=== PATIENT | female | born 1960 | race Caucasian/White ===

== ENCOUNTER 2017-06-24 12:04 | Emergency (ER) | payer OTHER ==
[2017-06-24 12:11] VITALS: BP 138/77; PULSE 73; TEMP 98.4; BMI 32.2
[2017-06-24] MEDS ORDERED: guaiFENesin 200 MG/10 ML 10 ML UNIT-DOSE CUPS PO ONE (13:48)
[2017-06-24] MEDS ORDERED: predniSONE 20 MG TABLET (UD) PO ONE (13:48)
[2017-06-24] MEDS ORDERED: ALBUTEROL SO4 2.5/IPRATROPIUM 0.5 INH SOL 3 ML VIAL.NEB. NEB ONE ×2 (13:48→13:51)
--- NOTE | 2017-06-24 13:48 | PDOC ---
History of Present Illness - General Chief Complaint: Respiratory Stated Complaint: HEADACHES, JOINT PAIN Time Seen by Provider: 06/24/17 13:31 Past History - Past Medical History Allergies/Adverse Reactions: Allergies Allergy/AdvReac Type Severity Reaction Status Date / Time No Known Allergies Allergy Verified 06/24/17 12:11 Home Medications: Ambulatory Orders No Home Medications 0 dose .ROUTE UTDICT 10/26/13 Albuterol Sulfate Inhaler - [Ventolin HFA Inhaler -] 1 - 2 inh PO Q4H #1 inhaler 06/24/17 Guaifenesin [Robitussin] 10 ml PO Q6H #200 ml 06/24/17 Ibuprofen 800 mg PO TID #30 tablet 06/24/17 predniSONE [Deltasone -] 40 mg PO DAILY #8 tablet 06/24/17 COPD: No - Immunization History Immunization Up to Date: No - Suicide/Smoking/Psychosocial Hx Smoking History: Never smoked Number of Cigarettes Smoked Daily: 0 Cigars Per Day: 0 Hx Alcohol Use: No Substance Use Type: None *Physical Exam - Vital Signs Last Vital Signs Temp Pulse Resp BP Pulse Ox 98.4 F 73 18 138/77 99 06/24/17 12:07 06/24/17 12:07 06/24/17 12:07 06/24/17 12:07 06/24/17 12:07 *DC/Admit/Observation/Transfer Diagnosis at time of Disposition: Flu-like symptoms, Bronchitis - Discharge Dispostion Disposition: HOME Condition at time of disposition: Stable Admit: No - Referrals Referrals: Lionel Rodrigez MD [Staff Physician] - - Patient Instructions Printed Discharge Instructions: DI for Acute Bronchitis Additional Instructions: You have bronchitis. Use the inhaler as prescribed every 4 hours to help with her cough. You were also prescribed Robitussin. He may take this every 6 hours to help the cough. You were also prescribed prednisone. Please take this for the next 4 days to help with the cough. Please follow-up with your primary care doctor. You may take Motrin as needed for muscle aches or headaches. Return to the emergency department for difficulty breathing, shortness of breath , lightheadedness, dizziness, or any changes in her symptoms. - Post Discharge Activity
[2017-06-24] MEDS ORDERED: predniSONE 20 MG TABLET (UD) ONE (13:51)
[2017-06-24] MEDS ORDERED: guaiFENesin 200 MG/10 ML 10 ML UNIT-DOSE CUPS ONE (13:53)
[2017-06-24] MEDS ORDERED: IBUPROFEN 400 MG TABLET (FP) PO ONE ×2 (14:24→14:25)
== END 2017-06-24 14:40 | disposition home or self-care (01) ==
LOC: JERFT 12:04
PROC: 3E0F7GC Introduction of Other Therapeutic Substance into Respiratory Tract, Via Natural or Artificial Opening (ICD-10-PCS; principal; 2017-06-24)
DX: J40 Bronchitis, not specified as acute or chronic (principal)
CPT/HCPCS: 94640; 99281-25

== ENCOUNTER 2022-03-22 04:56 | Inpatient (IN) | payer OTHER ==
[2022-03-22 05:06] VITALS: BMI 31.3
[2022-03-22] MEDS ORDERED: MAG HYDROX/AL HYDROX/SIMETH 30 ML UNIT-DOSE CUP PO ONE (05:20)
[2022-03-22] MEDS ORDERED: FAMOTIDINE 20 MG/50 ML IVPB 20 MG/50 ML MG IVPB ONE ×2 (05:20→05:26)
[2022-03-22] MEDS ORDERED: ACETAMINOPHEN 1000 MG/100 ML BAG IVPB ONE (05:20)
[2022-03-22] MEDS ORDERED: ACETAMINOPHEN INJECTION 100 ML IVPB ONE (05:26)
[2022-03-22] MEDS ORDERED: MAG HYDROX/AL HYDROX/SIMETH 30 ML UNIT-DOSE CUP ONE (05:26)
[2022-03-22] MEDS ORDERED: methylPREDNISolone NA SUCC 125 MG/2 ML VIAL IM ONE (06:28)
[2022-03-22] MEDS ORDERED: ALBUTEROL SO4 2.5/IPRATROPIUM 0.5 INH SOL 3 ML VIAL.NEB. NEB ONE (06:29)
[2022-03-22] MEDS ORDERED: methylPREDNISolone NA SUCC 125 MG/2 ML VIAL ONE (06:29)
[2022-03-22] MEDS: ALBUTEROL SO4 2.5/IPRATROPIUM 0.5 INH SOL 3 ML VIAL.NEB. NEB SCH ×2 (06:35→06:59)
[2022-03-22 06:53] LABS: CHLORIDE 107 mmol/L (98-107); SODIUM 141 mmol/L (136-145)
[2022-03-22 06:55] LABS: CALCIUM 8.8 mg/dL (8.5-10.1)
[2022-03-22 06:56] LABS: ALBUMIN 3.8 g/dl (3.4-5.0); ANION GAP 9 MMOL/L (8-16); BLOOD UREA NITROGEN 20.9 mg/dL (7-18); CO2 25 mmol/L (21-32); GLUCOSE,RANDOM 133 mg/dL (74-106)
[2022-03-22 06:57] LABS: BASO % 0.4 % (0-2.0); EOS % 1.2 % (0-4.5); HEMATOCRIT 42.6 % (32.4-45.2); HEMOGLOBIN 14.2 GM/dL (10.7-15.3); LYMPH % 29.8 % (8-40); MCHC 33.4 g/dl (32.0-36.0); MEAN CELL VOLUME 86.8 fl (80-96); MEAN PLT VOLUME 8.2 fl (7.5-11.1); NEUT % 63.6 % (42.8-82.8); PLATELET COUNT 257 10^3/uL (134-434); RDW 13.5 % (11.6-15.6); WHITE BLOOD COUNT 6.1 K/mm3 (4.0-10.0)
[2022-03-22 06:59] LABS: CREATININE 0.9 mg/dL (0.55-1.3); SGOT/AST 29 U/L (15-37); SGPT/ALT 22 U/L (13-61)
[2022-03-22 07:01] LABS: BILIRUBIN,TOTAL 0.3 mg/dL (0.2-1); TOT PROT 7.1 g/dl (6.4-8.2)
[2022-03-22 07:02] LABS: ALK PHOS 77 U/L (45-117)
[2022-03-22] MEDS ORDERED: ASPIRIN 325 MG TABLET PO ONE (07:39)
[2022-03-22] MEDS ORDERED: HEPARIN NA (PORCINE) 5,000 UNITS/ML 1ML VIAL IVPUSH ONE (08:03)
[2022-03-22] MEDS ORDERED: HEPARIN NA (PORCINE) 5,000 UNITS/ML 1ML VIAL IVPUSH PRN ×2 (08:03)
[2022-03-22] MEDS ORDERED: HEPARIN SOD,PORK IN 0.45% NACL 25,000 UNITS/500 ML INFUS.BAG IVPB SCH (08:15)
[2022-03-22] MEDS ORDERED: ASPIRIN 325 MG ENTERIC COATED TABLET (FP) ONE (08:38)
[2022-03-22 09:40] LABS: PROTHROMBIN TIME (PATIENT) 11.5 SEC (9.7-13.0)
[2022-03-22 09:43] LABS: ACTIVATED PTT 32.8 SECONDS (25.2-36.5)
[2022-03-22] MEDS ORDERED: HEPARIN NA (PORCINE) 5,000 UNITS/ML 1ML VIAL ONE (10:12)
[2022-03-22] MEDS ORDERED: ATORVASTATIN CA 80 MG TABLET (FP) PO ONE (10:16)
[2022-03-22] MEDS ORDERED: metoPROLOL SUCCINATE 25 MG TAB.SR.24H (FP) PO SCH (10:30)
[2022-03-22] MEDS ORDERED: PANTOPRAZOLE 20 MG TABLET PO SCH (10:30)
[2022-03-22 10:31] VITALS: RESP 18
[2022-03-22] MEDS ORDERED: metoPROLOL SUCCINATE 25 MG TAB.SR.24H (FP) PO ONE (10:35)
[2022-03-22] MEDS ORDERED: ATORVASTATIN CA 80 MG TABLET (FP) ONE (10:35)
[2022-03-22] MEDS ORDERED: PANTOPRAZOLE 20 MG TABLET PO ONE (10:35)
[2022-03-22 11:13] LABS: CHOLESTEROL 227 mg/dL (50-200)
[2022-03-22 11:14] LABS: LDL CHOLESTEROL (ONLY SJRH) 147 mg/dL (5-100); TRIGLYCERIDES 73 mg/dL (0-150)
[2022-03-22 11:15] LABS: HDL CHOLESTEROL 68 mg/dL (40-60)
[2022-03-22 16:12] VITALS: BP 97/60; PULSE 84; TEMP 98.4
[2022-03-22] MEDS ORDERED: ATORVASTATIN CA 80 MG TABLET (FP) PO SCH (22:00)
== END 2022-03-22 16:16 | disposition short-term general hospital (02) | DRG 281 ==
LOC: JER 04:56 → JERBED 10:16
PROVIDERS: ADMIT Family Medicine; ATTEND Family Medicine
DX: I21.4 Non-ST elevation (NSTEMI) myocardial infarction (principal); I51.81 Takotsubo syndrome; R07.9 Chest pain, unspecified; F17.210 Nicotine dependence, cigarettes, uncomplicated
CPT/HCPCS: 0241U-QW; 36415; 71045-TC-FY; 80053; 80061; 83036; 83735; 83880; 84443; 84484; 85025; 85610; 85730; 93005; 93010; 93306-TC; 99285-25; J1644

== ENCOUNTER 2023-07-31 11:02 | Emergency (ER) | payer OTHER ==
[2023-07-31 11:12] VITALS: TEMP 98.7; BMI 32.3
[2023-07-31] MEDS ORDERED: ACETAMINOPHEN INJECTION 100 ML IVPB ONE (12:28)
[2023-07-31] MEDS ORDERED: FAMOTIDINE 20 MG/50 ML IVPB 20 MG/50 ML MG IVPB ONE (12:28)
[2023-07-31] MEDS: ACETAMINOPHEN 1000 MG/100 ML BAG IVPB ONE (12:49)
[2023-07-31] MEDS: FAMOTIDINE 20 MG/50 ML IVPB 20 MG/50 ML MG IVPB ONE (12:49)
[2023-07-31 13:07] LABS: BASO % 0.5 % (0-2.0); HEMOGLOBIN 14.1 GM/dL (10.7-15.3); LYMPH % 29.4 % (8-40); MCH 29.9 pg (25.7-33.7); MCHC 34.4 g/dl (32.0-36.0); MEAN CELL VOLUME 86.9 fl (80-96); MEAN PLT VOLUME 7.7 fl (7.5-11.1); MONO % 5.7 % (3.8-10.2); NEUT % 63.4 % (42.8-82.8); PLATELET COUNT 249 10^3/uL (134-434); RBC 4.72 M/mm3 (3.60-5.2); RDW 13.1 % (11.6-15.6); WHITE BLOOD COUNT 5.8 K/mm3 (4.0-10.0)
[2023-07-31 13:11] LABS: INR 1.01 (0.83-1.09); PROTHROMBIN TIME (PATIENT) 11.7 SEC (9.7-13.0)
[2023-07-31 13:14] LABS: ACTIVATED PTT 32.3 SECONDS (25.2-36.5)
[2023-07-31 13:46] LABS: CALCIUM 9.7 mg/dL (8.5-10.1)
[2023-07-31 13:47] LABS: ALBUMIN 4.5 g/dl (3.4-5.0); BLOOD UREA NITROGEN 23.8 mg/dL (7-18)
[2023-07-31 13:50] LABS: CREATININE 0.8 mg/dL (0.55-1.3)
[2023-07-31 13:51] LABS: BILIRUBIN,TOTAL 0.4 mg/dL (0.2-1)
[2023-07-31 13:52] LABS: TOT PROT 7.8 g/dl (6.4-8.2)
[2023-07-31 15:56] VITALS: BP 135/76; PULSE 67; RESP 18
== END 2023-07-31 15:59 | disposition home or self-care (01) ==
LOC: JER 11:02
PROC: 3E033GC Introduction of Other Therapeutic Substance into Peripheral Vein, Percutaneous Approach (ICD-10-PCS; principal; 2023-07-31)
PROC: 3E033NZ Introduction of Analgesics, Hypnotics, Sedatives into Peripheral Vein, Percutaneous Approach (ICD-10-PCS; 2023-07-31)
DX: R07.2 Precordial pain (principal); R68.84 Jaw pain; R11.0 Nausea; R61 Generalized hyperhidrosis; Z20.822 Contact with and (suspected) exposure to COVID-19
CPT/HCPCS: 0241U-QW; 36415; 71045-TC-FY; 80053; 83880; 84484; 85025; 85610; 85730; 86850; 86900; 86901; 93005; 93010; 99285-25; J0131

== ENCOUNTER 2023-08-02 18:43 | Emergency (ER) | payer OTHER ==
[2023-08-02 18:51] VITALS: BP 132/62; PULSE 66; RESP 20; TEMP 98.7; BMI 29.5
[2023-08-02] MEDS: ACETAMINOPHEN 500 MG TABLET (FP) PO ONE (19:35)
[2023-08-02] MEDS ORDERED: ACETAMINOPHEN 500 MG TABLET (FP) ONE (19:35)
== END 2023-08-02 21:40 | disposition home or self-care (01) ==
LOC: JERFT 18:43
DX: M25.572 Pain in left ankle and joints of left foot (principal); S82.832A Other fracture of upper and lower end of left fibula, initial encounter for closed fracture; R22.42 Localized swelling, mass and lump, left lower limb; W18.39XA Other fall on same level, initial encounter
CPT/HCPCS: 73564-TC-RT-FY; 73590-TC-LT-FY; 73610-TC-LT-FY; 73630-TC-LT; 99283-25

== ENCOUNTER 2024-01-25 13:30 | Emergency (ER) | payer OTHER ==
[2024-01-25 13:45] VITALS: BP 149/94; PULSE 91; RESP 18; TEMP 98.1; BMI 26.6
[2024-01-25] MEDS ORDERED: ACETAMINOPHEN 325 MG TABLET (FP) ONE (15:38)
[2024-01-25] MEDS: ACETAMINOPHEN 325 MG TABLET (FP) PO ONE (16:18)
== END 2024-01-25 17:23 | disposition home or self-care (01) ==
LOC: JERFT 13:30 → JER 13:30 → JERFT 17:23
DX: S09.92XA Unspecified injury of nose, initial encounter (principal); W01.198A Fall on same level from slipping, tripping and stumbling with subsequent striking against other object, initial encounter
CPT/HCPCS: 70160-TC-FY; 99283-25